=== PATIENT | female | born 1965 | race African-American/Black ===

== ENCOUNTER 2022-04-27 08:53 | Observation (INO) | payer OTHER ==
[2022-04-22 12:28] LABS: BASOPHILS % 0.3 % (0.0-1.0); EOSINOPHILS # (AUTO) 0.1 (0.0-0.4); EOSINOPHILS % 2.4 % (0.0-6.0); HEMATOCRIT 33.7 % (34.2-44.1); HEMOGLOBIN 9.9 g/dL (12.0-16.0); LYMPHOCYTES % 34.4 % (18.0-39.1); MEAN CORPUSCULAR HEMOGLOBIN 21.5 pg (28-32); MEAN CORPUSCULAR HGB CONC 29.4 g/dL (31-35); MEAN CORPUSCULAR VOLUME 73.3 fL (81-99); MONOCYTES # (AUTO) 0.5 (0.2-0.8); MONOCYTES % 9.2 % (4.4-11.3); NEUTROPHILS # (AUTO) 3.1 (2.1-6.9); NEUTROPHILS % 53.5 % (38.7-80.0); PLATELET COUNT 298 x10e3/uL (140-360); RED CELL DISTRIBUTION WIDTH 24.4 % (11.7-14.4)
[2022-04-22 13:07] LABS: ANION GAP 11.5 mmol/L (8-16); CALCIUM 9.6 mg/dL (8.4-10.2); CREATININE, SERUM 0.69 mg/dL (0.57-1.11); POTASSIUM 3.5 mmol/L (3.5-5.1)
[2022-04-22 13:14] LABS: EOSINOPHILS % (MANUAL) 2 % (0-7); LYMPHOCYTES % (MANUAL) 38 % (19-48); MONOCYTES % (MANUAL) 4 % (3.4-9.0); NEUTROPHILS % (MANUAL) 54 % (40-74); PLATELET ESTIMATE ADEQUATE; PLATELET MORPHOLOGY COMMENT NORMAL
[2022-04-22 13:15] LABS: ANISOCYTOSIS MODERATE; HYPOCHROMASIA MODERATE
[2022-04-22 13:16] LABS: TARGET CELLS FEW
[~2022-04-27] VITALS: Ht 160 cm; Wt 72.1 kg
[~2022-04-27 08:53] MED LIST: ASPIRIN81 MG PO; FERROUS SULFAT325 MG PO; LEVOTHYROXINE75 MCG PO; LISINOPRIL-HCT1 EAC2 PO; MELOXICAM7.5 MG PO; OMEPRAZOLE40 MG PO; PHENTERMINE H37.5 M1 PO; ROPIVACAINE 246.25 MG, EPINEPHRINE HCL 1:1000 1ML 0.5 MG, CLONIDINE HCL 0.08 MG, KETORO... INJ ONE; SENNA PLUS 8.61 EACH PO; SENNA PO; SERTRALINE HCL50 MG PO
[2022-04-27] MEDS ORDERED: SODIUM CHLORIDE 0.9% 500ML 500 ML ONE (09:02)
[2022-04-27] MEDS ORDERED: Vancomycin IV 1,000 MG ONE (09:02)
[2022-04-27] MEDS ORDERED: TRANEXAMIC ACID 20 ML ONE (09:02)
[2022-04-27] MEDS ORDERED: CELECOXIB 200 MG CAP ONE (09:27)
[2022-04-27] MEDS ORDERED: GABAPENTIN 300 MG CAP ONE (09:28)
[2022-04-27] MEDS ORDERED: DEXAMETHASONE SOD PHOS 10 MG/1 ML VIAL ONE (09:28)
[2022-04-27] MEDS ORDERED: DOCUSATE SODIUM 100 MG CAP PO PRN (11:45)
[2022-04-27] MEDS ORDERED: ACETAMINOPHEN 650 MG SUPP PR PRN (11:45)
[2022-04-27] MEDS ORDERED: HYDROCODONE/APAP 5MG-325MG TAB PO PRN (11:45)
[2022-04-27] MEDS ORDERED: KETOROLAC TROMETHAMINE 30 MG/ML VIAL IV PRN (11:45)
[2022-04-27] MEDS ORDERED: ONDANSETRON HCL INJ 2MG/ML 2ML 2 MG/ML VIAL IV PRN (11:45)
[2022-04-27] MEDS ORDERED: DIPHENHYDRAMINE HCL INJ 50 MG/ML VIAL IV PRN (11:45)
[2022-04-27] MEDS ORDERED: ONDANSETRON HCL INJ 2MG/ML 2ML 2 MG/ML VIAL ONE (12:21)
[2022-04-27] MEDS ORDERED: LIDOCAINE HCL 2% LOCAL INJ 5 ML SDV VIAL INJ ONE (12:21)
[2022-04-27] MEDS ORDERED: PROPOFOL IV EMULSION 10 MG/ML 20 ML VIAL ONE (12:21)
[2022-04-27] MEDS ORDERED: EPHEDRINE SULFATE INJ 50 MG/ML VIAL ONE (12:21)
[2022-04-27] MEDS ORDERED: POVIDONE IODINE 0.05% 0.05 % ML PO ONE (12:21)
[2022-04-27] MEDS ORDERED: ACETAMINOPHEN 1000 MG/100 ML IV ONE (12:21)
[2022-04-27] MEDS ORDERED: SEVOFLURANE INHAL SOLN 250 ML PEN BTL ONE (12:21)
[2022-04-27 12:26] VITALS: BP 157/81
[2022-04-27 12:35] VITALS: BP 157/81
[2022-04-27] MEDS ORDERED: ROPIVACAINE 0.5% 5 MG/ML 30 ML SDV ONE (12:35)
[2022-04-27] MEDS ORDERED: FENTANYL CITRATE/PF 100MCG/2 ML INJ ONE (12:40)
[2022-04-27] MEDS ORDERED: MIDAZOLAM HCL 2 MG/2 ML VIAL ONE (12:40)
[2022-04-27 12:44] VITALS: BP 157/81
[2022-04-27] MEDS ORDERED: SODIUM CHLORIDE 0.9% 1000ML 1,000 ML IV SCH (14:00)
[2022-04-27 16:00] VITALS: BP 109/78
[2022-04-27] MEDS ORDERED: CELECOXIB 200 MG CAP PO SCH (17:00)
[2022-04-27] MEDS ORDERED: ASPIRIN 325 MG TAB PO SCH (20:00)
[2022-04-27 20:51] VITALS: BP 109/78
[2022-04-27] MEDS ORDERED: ZOLPIDEM TARTRATE 5 MG TAB PO PRN (21:00)
[2022-04-28] MEDS ORDERED: ACETAMINOPHEN 1000 MG/100 ML IV PRN (11:45)
== END 2022-04-27 20:45 | disposition home or self-care (01) ==
LOC: OR 08:53 → PACU V 11:46 → MED/SURG 12:26
PROVIDERS: ADMIT Specialist; ATTEND Specialist
DX: M17.12 Unilateral primary osteoarthritis, left knee (principal); Z01.812 Encounter for preprocedural laboratory examination; Z20.822 Contact with and (suspected) exposure to COVID-19; E03.9 Hypothyroidism, unspecified; K21.9 Gastro-esophageal reflux disease without esophagitis; D64.9 Anemia, unspecified; I10 Essential (primary) hypertension; F32.A Depression, unspecified
CPT/HCPCS: 0223U; 27447; 36415; 73560; 80048; 85025; 86850; 86900; 86920; 94799; 96361; 97110; 97116 ×2; 97161; 97530; C1713 ×3; C1776 ×3; G0378; J0131; J0171; J0690; J1100; J1885; J2001; J2250; J2405; J2704; J2795; J3010; J3370; J7030; J7040; 96360